=== PATIENT | female | born 2000 | race Caucasian/White ===

== ENCOUNTER 2018-05-22 10:46 | Emergency (ER) | payer OTHER ==
[~2018-05-22] VITALS: Ht 162.6 cm; Wt 81.7 kg
[2018-05-22 11:36] LABS: URINE BILIRUBIN NEGATIVE (Negative); URINE BLOOD 3+ (Negative); URINE CLARITY CLEAR; URINE COLOR YELLOW; URINE GLUCOSE-RANDOM* NEGATIVE (Negative); URINE KETONES NEGATIVE (Negative); URINE LEUKOCYTES-REFLEX NEGATIVE (Negative); URINE NITRITE-REFLEX NEGATIVE (Negative); URINE PROTEIN (DIPSTICK) NEGATIVE (Negative); URINE SPECIFIC GRAVITY >= 1.030 (1.005-1.035); URINE UROBILINOGEN 0.2 E.U./dl (0.2-1.0)
[2018-05-22 11:50] LABS: BACTERIA-REFLEX 1-9 Few /HPF (None Seen); CASTS None Seen /LPF (None Seen); CRYSTALS None Seen /LPF (None Seen); SQUAMOUS 0-3 Few /LPF (0-3); URINE RBC >20 Many /HPF (0-2); URINE WBC-REFLEX 0-5 Rare /HPF (0-5)
[2018-05-22 12:38] LABS: ABSOLUTE NEUTROPHILS 9.7 thou/uL (1.4-8.2); BASOPHILS 0.5 % (0.0-2.0); EOSINOPHILS 1.2 % (0.0-3.0); HEMATOCRIT 39.2 % (37.0-47.0); MCH 29.1 pg (26.0-34.0); MCHC 33.2 g/dL (28.0-37.0); MCV 87.7 fL (80.0-100.0); MONOCYTES 6.6 % (1.0-8.0); PLATELET COUNT 333 thou/uL (150-400); POLYS 72.7 % (36.0-66.0); RBC 4.47 mil/uL (4.20-5.00); RDW 13.5 % (10.5-14.5); WBC 13.3 thou/uL (4.0-11.0)
[2018-05-22 12:46] LABS: CALCIUM 9.1 mg/dL (8.5-10.1); CREATININE 0.9 mg/dL (0.6-1.0)
[2018-05-22 12:52] LABS: ALBUMIN 3.4 g/dL (3.4-5.0); TOTAL BILIRUBIN 0.2 mg/dL (<0.1-1.0); TOTAL PROTEIN 7.4 g/dL (6.4-8.2)
[2018-05-22 15:22] VITALS: BP 108/64
== END 2018-05-22 15:41 | disposition short-term general hospital (02) ==
LOC: ER 10:46
PROVIDERS: Physician Assistant
DX: N13.2 Hydronephrosis with renal and ureteral calculous obstruction (principal); N39.0 Urinary tract infection, site not specified; R11.2 Nausea with vomiting, unspecified; Z87.442 Personal history of urinary calculi

== ENCOUNTER 2018-10-27 16:59 | Inpatient (IN) | payer BC ==
[~2018-10-27] VITALS: Ht 162.6 cm; Wt 93.2 kg
[2018-10-27 17:00] VITALS: BP 120/78
[2018-10-27 17:30] LABS: URINE BILIRUBIN NEGATIVE (Negative); URINE BLOOD 3+ (Negative); URINE CLARITY CLEAR; URINE COLOR YELLOW; URINE GLUCOSE-RANDOM* NEGATIVE (Negative); URINE KETONES 3+ (Negative); URINE NITRITE-REFLEX NEGATIVE (Negative); URINE PROTEIN (DIPSTICK) 2+ (Negative)
[2018-10-27 17:36] LABS: URINE LEUKOCYTES-REFLEX 1+ (Negative)
[2018-10-27 17:38] LABS: URINE REDUCING SUBSTANCE NEGATIVE
[2018-10-27 17:44] LABS: ABSOLUTE NEUTROPHILS 16.7 thou/uL (1.4-8.2); BASOPHILS 0.3 % (0.0-2.0); HEMATOCRIT 39.9 % (37.0-47.0); HEMOGLOBIN 13.6 gm/dL (12.0-15.0); LYMPHOCYTES 3.7 % (24.0-44.0); MCH 29.5 pg (26.0-34.0); MCHC 33.9 g/dL (28.0-37.0); MCV 87.1 fL (80.0-100.0); MONOCYTES 8.2 % (1.0-8.0); PLATELET COUNT 248 thou/uL (150-400); POLYS 87.8 % (36.0-66.0); RBC 4.59 mil/uL (4.20-5.00); RDW 13.3 % (10.5-14.5)
[2018-10-27 17:46] LABS: CASTS None Seen /LPF (None Seen); CRYSTALS None Seen /LPF (None Seen); SQUAMOUS 0-3 Few /LPF (0-3); URINE RBC 3-10 Few /HPF (0-2); URINE WBC-REFLEX 6-15 Few /HPF (0-5)
[2018-10-27 17:53] LABS: CALCIUM 9.5 mg/dL (8.5-10.1); POTASSIUM 3.3 mmol/L (3.5-5.1)
[2018-10-27 17:59] LABS: ALBUMIN 3.8 g/dL (3.4-5.0); TOTAL BILIRUBIN 0.4 mg/dL (<0.1-1.0); TOTAL PROTEIN 8.3 g/dL (6.4-8.2)
[2018-10-27 23:23] VITALS: BP 124/59
[2018-10-28] MEDS ORDERED: NEXIUM2.5 MG PO (00:05)
[2018-10-28] MEDS ORDERED: NEXIUM40 MG PO (00:07)
[2018-10-28 03:52] LABS: CALCIUM 8.5 mg/dL (8.5-10.1); CREATININE 0.8 mg/dL (0.6-1.0); POTASSIUM 3.7 mmol/L (3.5-5.1)
--- NOTE | 2018-10-28 04:05 | NUR ---
PT ARRIVED UNIT AT ABOUT 2355 FROM ER. PT A/OX4. VITAL SIGNS STABLE, TACHYCARDIC ON THE MONITOR, (110-120'S), ASSESSMENT CHARTED. NO COMPLAINTS OF CHEST PAIN. PT DID COMPLAIN OF SOME FLANK/BACK PAIN. PAIN MEDICATION GIVEN TO HELP WITH THE PAIN, WHICH SEEMED TO HELP. PT RESTED WELL FOR THE REST OF THE NIGHT. HR WITHIN NORMAL LIMITS. PT INDEPENDEDNT BUT ENCOURAGED TO CALL FOR HELP WHEN NEEDED. CONSENTS SIGNED. ADMISSION COMPLETED. WILL CONTINUE TO MONITOR.
[2018-10-28 04:32] VITALS: BP 117/69
[2018-10-28 04:40] LABS: HEMATOCRIT 37.9 % (37.0-47.0); HEMOGLOBIN 12.5 gm/dL (12.0-15.0); MCH 29.2 pg (26.0-34.0); MCV 88.6 fL (80.0-100.0); RBC 4.28 mil/uL (4.20-5.00); RDW 13.6 % (10.5-14.5); WBC 17.5 thou/uL (4.0-11.0)
[2018-10-28 08:30] VITALS: BP 126/78
--- NOTE | 2018-10-28 13:02 | NUR ---
ASSESSMENT CHARTED - MEDS PER SEP - PT STARTED ON ZOZYN IV THIS AM - FLUIDS ABLE TO BE D/C'D. UP AD KIERSTEN IN ROOM - STEADY ON FEET - JORDEN DIET AND FLUIDS. STATES NOT MUCH OF AN APPITITE. NO CO'S OF PAIN OR NAUSEA. PT TRANSFERED TO / RROM 420 - REPORT CALLED TO LINDA - PT LEFT UNIT VIA WHEELCHAIR - TRANSPERTED BY VOLUTEER ACCOMPANIED BY BOYFRIEND - PT TOOK BELONGINGS WITH HER AT TIME OF TRANSFER.
[2018-10-28 13:28] VITALS: BP 103/47
--- NOTE | 2018-10-28 13:29 | NUR ---
Chart reviewed and case discussed witht the care team. Pt transfering off tele unit today. Progressing with iv atb and ivf. Pt is a&ox4 and indep prior to admission. Pt has ins coverage in place for followup care and scripts. No cm interventions indicated. Will remain available should dc needs arise. Likely dc to home tomorrow.
[2018-10-28 16:00] VITALS: BP 108/57
[2018-10-28 19:20] VITALS: BP 102/63
--- NOTE | 2018-10-28 20:14 | NUR ---
Pt admitted to floor from ccu per wc around 1300 in stable condition. Assessment completed.vss but elevated temp noted.Tylenol po given with relief. Toradol ivp given later this evening.Will continue to monitor.
--- NOTE | 2018-10-28 22:53 | NUR ---
Assumed care of pt at 1900. P alert and oriented x4. Denies pain. Up ad christiane. Pt states she hopes to go home in am. Report given to sha GAGE.
[2018-10-29 05:10] VITALS: BP 111/61
--- NOTE | 2018-10-29 08:13 | NUR ---
ASSUMED PT CARE APPROX 2300. PT SLEEPING. ASSESSMENT COMPLETE- AGREEE WITH PREVIOUS NURSE ASSESSMENT. PT DENIED N/V, REPORTED GARCIA, SEE EMAR. IV DRESSING C/D/I, NO SIGNS OF INFILTRATION. REPORT GIVEN TO AM NURSE.
[2018-10-29] MEDS ORDERED: CEFDINIR300 MG PO (08:59)
[2018-10-29 10:07] VITALS: BP 111/61
--- NOTE | 2018-10-29 14:13 | NUR ---
Assumed pt care at 7am.Pt in and out of bed independently.Assessment completed.vss.Pt tolerated all meals.Dr Abernathy here,dc order noted.Dc summary completed and reviewed with pt.rx and dc summary given.PIv and saline lock dc'd.AT 1400,pt dc home in [place] accompanied by electronics teacher.
== END 2018-10-29 14:41 | disposition home or self-care (01) | DRG 872 ==
LOC: ER 16:59 → 2N 20:07 → EROBS 20:07 → 2N 10-28 → ENTRNSPT 10-28 12:43 → EDTRNSPTSTS 10-28 12:45 → 4E 10-28 13:00
PROVIDERS: Nurse Practitioner Acute Care; Physician Assistant; ADMIT Hospitalist
DX: A41.9 Sepsis, unspecified organism (principal); E87.6 Hypokalemia; N12 Tubulo-interstitial nephritis, not specified as acute or chronic; Z87.442 Personal history of urinary calculi; Z79.899 Other long term (current) drug therapy
CPT/HCPCS: 10783

== ENCOUNTER 2019-05-19 06:49 | Emergency (ER) | payer BC ==
[~2019-05-19] VITALS: Ht 165.1 cm; Wt 79.4 kg
[~2019-05-19 06:49] MED LIST: CEFDINIR300 MG PO; NEXIUM2.5 MG PO; NEXIUM40 MG PO
[2019-05-19 08:13] LABS: ABSOLUTE NEUTROPHILS 16.3 thou/uL (1.4-8.2); BASOPHILS 0.2 % (0.0-2.0); EOSINOPHILS 0.2 % (0.0-3.0); HEMATOCRIT 43.9 % (37.0-47.0); HEMOGLOBIN 14.6 gm/dL (12.0-15.0); LYMPHOCYTES 5.5 % (24.0-44.0); MCH 29.2 pg (26.0-34.0); MCHC 33.2 g/dL (28.0-37.0); MCV 87.9 fL (80.0-100.0); MONOCYTES 5.4 % (1.0-8.0); PLATELET COUNT 329 thou/uL (150-400); POLYS 88.7 % (36.0-66.0); RBC 4.99 mil/uL (4.20-5.00); RDW 14.1 % (10.5-14.5); WBC 18.4 thou/uL (4.0-11.0)
[2019-05-19 08:18] LABS: URINE BILIRUBIN NEGATIVE (Negative); URINE BLOOD 1+ (Negative); URINE CLARITY CLEAR; URINE COLOR YELLOW; URINE GLUCOSE-RANDOM* NEGATIVE (Negative); URINE KETONES NEGATIVE (Negative); URINE LEUKOCYTES-REFLEX NEGATIVE (Negative); URINE NITRITE-REFLEX NEGATIVE (Negative); URINE PROTEIN (DIPSTICK) TRACE (Negative); URINE SPECIFIC GRAVITY 1.015 (1.005-1.035); URINE UROBILINOGEN 0.2 E.U./dl (0.2-1.0)
[2019-05-19 08:19] LABS: CALCIUM 9.4 mg/dL (8.5-10.1); CREATININE 0.8 mg/dL (0.6-1.0)
[2019-05-19 08:23] LABS: ALBUMIN 4.1 g/dL (3.4-5.0); TOTAL BILIRUBIN 0.5 mg/dL (<0.1-1.0); TOTAL PROTEIN 9.1 g/dL (6.4-8.2)
[2019-05-19 08:36] LABS: BACTERIA-REFLEX 1-9 Few /HPF (None Seen); CASTS None Seen /LPF (None Seen); CRYSTALS None Seen /LPF (None Seen); SQUAMOUS 0-3 Few /LPF (0-3); URINE RBC 3-10 Few /HPF (0-2); URINE WBC-REFLEX 0-5 Rare /HPF (0-5)
[2019-05-19] MEDS ORDERED: AUGMENTIN 875-1 EACH PO (09:14)
[2019-05-19] MEDS ORDERED: TRAMADOL 50 MG50 MG PO (09:14)
[2019-05-19] MEDS ORDERED: ONDANSETRON ODT8 MG PO (09:14)
[2019-05-19 09:41] VITALS: BP 107/74
== END 2019-05-19 09:42 ==
LOC: ER 06:49
PROVIDERS: Emergency Medicine
DX: N12 Tubulo-interstitial nephritis, not specified as acute or chronic (principal); R11.2 Nausea with vomiting, unspecified; F90.9 Attention-deficit hyperactivity disorder, unspecified type; E28.2 Polycystic ovarian syndrome; Z87.442 Personal history of urinary calculi